=== PATIENT | female | born 1970 | race Native Hawaiian/Other Pacific Islander ===

== ENCOUNTER 2020-08-16 12:41 | Outpatient (CLI) | payer OTHER ==
[2020-08-16 13:32] LABS: POTASSIUM 4.1 mmol/L (3.6-5.2)
== END 2020-08-16 21:03 | disposition home or self-care (01) ==
LOC: LABW 12:41
PROVIDERS: ATTEND Nurse Practitioner Primary Care
DX: E11.9 Type 2 diabetes mellitus without complications (principal); Z13.220 Encounter for screening for lipoid disorders; R53.83 Other fatigue; E55.9 Vitamin D deficiency, unspecified; E53.8 Deficiency of other specified B group vitamins
CPT/HCPCS: 36415; 80053; 80061; 81000; 82306; 82607; 83036; 84443

== ENCOUNTER 2021-10-31 11:10 | Outpatient (CLI) | payer OTHER | END 2021-10-31 20:01 | disposition home or self-care (01) | LOC: US 11:10 | PROVIDERS: ATTEND Nurse Practitioner Family | DX: M79.605 Pain in left leg (principal) ==

== ENCOUNTER 2022-01-22 16:34 | Outpatient (CLI) | payer OTHER | END 2022-01-22 19:18 | disposition home or self-care (01) | LOC: RAD 16:34 | PROVIDERS: ATTEND Physician Assistant | DX: M54.59 Other low back pain (principal) ==

== ENCOUNTER 2022-01-24 22:31 | Emergency (ER) | payer OTHER ==
[~2022-01-24] VITALS: Ht 160 cm; Wt 61.7 kg
[2022-01-24 23:47] VITALS: BP 124/71; TEMP 98.2
== END 2022-01-24 23:47 | disposition home or self-care (01) ==
LOC: ED 22:31
DX: M79.605 Pain in left leg (principal); M79.604 Pain in right leg; R20.2 Paresthesia of skin; E11.69 Type 2 diabetes mellitus with other specified complication; Z79.4 Long term (current) use of insulin
CPT/HCPCS: 99282

== ENCOUNTER 2022-05-20 14:09 | Outpatient (CLI) | payer OTHER | END 2022-05-20 20:54 | disposition home or self-care (01) | LOC: MRI 14:09 | PROVIDERS: ATTEND Physician Assistant | DX: M51.36 Other intervertebral disc degeneration, lumbar region (principal) ==

== ENCOUNTER 2022-07-31 20:50 | Emergency (ER) | payer OTHER ==
[~2022-07-31] VITALS: Ht 160 cm; Wt 61.2 kg
[2022-07-31 22:16] VITALS: BP 134/73; TEMP 98.1
== END 2022-07-31 22:16 | disposition home or self-care (01) ==
LOC: ED 20:50
DX: M54.50 Low back pain, unspecified (principal)
CPT/HCPCS: 96372; 99283; J1100; J1885